=== PATIENT | female | born 1940 | race Caucasian/White ===

== ENCOUNTER → 2016-10-21 | Outpatient (CLI) | payer MEDICARE, BC ==
[~2016-10-21] MED LIST: ACCUPRIL40 MG PO; ACETAMINOPHEN325 MG PO; ACETAMINOPHEN650 M1 PO; AMITRIPTYLINE H25 MG PO; AXID150 M1 PO; AXID150 MG PO; CALCIUM 500 +1 EAC5 PO; DIOVAN160 MG PO; HCTZ PO; HYDROCHLOROTHIA25 MG PO; LORTAB 5-325 M1 EACH PO; METOPROLOL SUC100 MG PO; PHENERGAN25 M1 PO; PRAVASTATIN SOD20 MG PO; TUMS200 MG PO
--- NOTE | ~2016-10-21 | EKG ---
PATIENT: RENITA CLARKE UNIT #: [id number] Ventricular Rate: 75 BPM Atrial Rate: 75 BPM P-R Interval: 200 ms QRS Duration: 88 ms Q-T Interval: 378 ms QTC Calculation(Bezet): 422 ms P [place]: 15 degrees Calculated T [place]: 18 degrees Diagnosis Line: Normal sinus rhythm Diagnosis Line: Normal ECG Diagnosis Line: When compared with ECG of 07-MAY-2013 13:09, Diagnosis Line: No significant change was found Diagnosis Line: Confirmed by MESHA STEELE MD ([id number]) on Diagnosis Line: 10/21/2016 9:36:54 PM INTERPRETING MD: DEBI
[2016-10-21 12:03] LABS: HEMATOCRIT 40.2 % (35.0-45.0); HEMOGLOBIN 13.1 gm/dL (12.0-16.0); MEAN CELL VOLUME 89.8 FL (83-96); MEAN CORPUSCULAR HEMOGLOBIN 29.2 PG (28-34); MEAN CORPUSCULAR HGB CONC 32.5 g/dL (30-36); MEAN PLATELET VOLUME 7.3 FL (6.5-11.5); RED BLOOD COUNT 4.47 X10e (3.90-5.30); RED CELL DISTRIBUTION WIDTH 14.4 % (11.0-15.5)
[2016-10-21 12:48] LABS: ALBUMIN SERUM 3.5 g/dL (3.5-5.0); BILIRUBIN,TOTAL 0.9 mg/dL (0.2-2.0); BUN/CREATININE RATIO 11.42; CALCIUM SERUM 9.1 mg/dL (8.4-10.2); CREATININE SERUM 1.4 mg/dL (0.6-1.4); GLOM FILT RATE Estimated 36.9 mL/min (>60); POTASSIUM 3.8 mmol/L (3.5-5.1); PROTEIN TOTAL SERUM 7.1 g/dL (6.0-8.3)
== END | disposition home or self-care (01) ==
LOC: CAMB 11:37
PROVIDERS: Surgery
DX: Z01.818 Encounter for other preprocedural examination (principal); E07.89 Other specified disorders of thyroid
CPT/HCPCS: 36415; 80053; 85027; 93005

== ENCOUNTER 2016-10-27 05:41 | Observation (INO) | payer MEDICARE, BC ==
--- NOTE | ~2016-10-27 | CR71 ---
[facility] A Service of [facility] RADIOLOGY TEXT RESULTS PATIENT: RENITA CLARKE LOCATION: [place] [address]- : 44 UNIT #: [id number] AGE: [address]: Ziyad Don MD SEX: F ORDER DR: [id number] [facility] [address] [place], [place] [address] [id number] I MR#: [id number] Acc #: [id number] NAME: RENITA CLARKE. : 1940 SEX: F STUDY DATE/TIME: 10/27/2016 10:28 UNIT: [facility] ROOM: [facility] STUDY DESCRIPTION: CR Chest Single View Attending Physician: Ziyad Don M.D. Ordering Physician: Ziyad Don M.D. Primary Care Physician: Rajiv Ochoa M.D. MEDICAL IMAGING REPORT This report is preliminary unless electronic signature is present EXAM Portable chest 1-view, 10/27/2016 HISTORY Immediate status post thyroidectomy for goiter with intrathoracic extension. FINDINGS There is no infiltrate or effusion and there is no pneumothorax. Surgical clips in the low right neck/upper mediastinum are identified but otherwise no acute abnormality is seen. Dictated by... Josue Coburn M.D. THIS IS AN ELECTRONICALLY VERIFIED REPORT Josue Coburn M.D. at 10/28/2016 3:53 PM TE/eddie TD: 10/27/2016 12:31 JOB #: [id number] MEDICAL IMAGING REPORT Page 1 of 1 COPY
--- NOTE | ~2016-10-27 | OR ---
Unit #: [id number] #: [id number] Patient: RENITA CLARKE [id number] [address] [place], [place] [address] [id number] I MR#: [id number] NAME: RENITA CLARKE. ROOM: 476 Date of Procedure: 10/27/2016 Admission Date: 10/27/2016 Surgeon: Ziyad Don M.D. : 1940 Attending Physician: Ziyad Don M.D. Primary Care Physician: Rajiv Ochoa M.D. OPERATIVE REPORT PREOPERATIVE DIAGNOSIS Follicular neoplasm, right lobe of the thyroid. POSTOPERATIVE DIAGNOSIS Follicular neoplasm, right lobe of the thyroid. PROCEDURES PERFORMED Right thyroid lobectomy and isthmusectomy. CLEANING MACHINE OPERATOR Desire Sauceda, certified flex endoscope reprocessor. ANESTHESIA General endotracheal anesthesia with 0.5% Marcaine plain local anesthesia. FINDINGS The right recurrent laryngeal nerve was intact at the end of the procedure as well as the right inferior parathyroid. All dissection was kept on the capsule of the thyroid. SPECIMENS Sent to pathology. COMPLICATIONS None apparent. CONDITION The patient tolerated the procedure well. INDICATIONS FOR PROCEDURE The patient is a 76-year-old white female, who has a history of breast cancer and in the course of her evaluation with CT scan was found to have a 3 to 4 cm mass in the right lobe of the thyroid. The left lobe of her thyroid was normal. Our recommendation was to proceed with right thyroid lobectomy and isthmusectomy, possible total thyroidectomy. She got a second opinion from Dr. Claus Weaver of [facility], who gave the same opinion independently. She presents at this time for right thyroid lobectomy and isthmusectomy, possible total thyroidectomy. DESCRIPTION OF PROCEDURE Unit #: [id number] #: [id number] Patient: RENITA CLARKE After obtaining informed consent as well as receiving preoperative antibiotics and knee-high SCDs, the patient was brought to the operating room and after adequate general endotracheal anesthesia was obtained, had a roll placed under her shoulders and her neck gently hyperextended, but well supported. Her chin, neck, and chest were all prepped and draped in a sterile fashion. A curvilinear incision was made in a skin fold that had previously been marked. It was taken down through the skin with a knife into the subdermal tissues, subcutaneous tissues, and platysma. A superior flap was raised to the level of the thyroid notch and inferior flap was raised to the level of the sternal notch. The strap muscles were divided in the midline with electrocautery with good hemostasis. The strap muscles were dissected off the anterior surface of the right lobe of the thyroid. The large thyroid nodule was able to be mobilized anteromedially with blunt dissection. The inferior feeding vessels were taken with medium size hemoclips as well as 2-0 Vicryl ties. The middle thyroid vein and inferior thyroid artery were taken with micro-clips and medium-sized clips. The superior vessels were taken with a medium-sized clips and micro-clips as well as with bipolar forceps. The thyroid was meticulously mobilized anteromedially taking all feeding vessels with micro-clips as well as bipolar forceps. The right recurrent laryngeal nerve was meticulously avoided. It was visualized. The right superior laryngeal nerve was meticulously avoided. The right inferior parathyroid was visualized and was viable at the end of the procedure. The thyroid continued to be mobilized up anteromedially and was dissected off the anterior surface of the trachea. It was divided at the junction with the left lobe of the thyroid with electrocautery with good hemostasis and was sent to pathology after being oriented. The wound was copiously irrigated. All irrigation was evacuated. There was good hemostasis in all areas of dissection. There was good hemostasis even with multiple Valsalva breaths. At this point in time, the piece of Surgicel was placed into the area to help ensure hemostasis. The strap muscles were reapproximated with interrupted 3-0 Vicryl oekblm-at-prkjo sutures. The subcutaneous tissues were irrigated. Hemostasis was obtained with the Bovie. All areas were infiltrated with 0.5% Marcaine plain local anesthesia. The subcutaneous tissues and platysma were reapproximated with a running 3-0 Vicryl suture. The skin was closed with 4-0 Vicryl subcuticular stitch. Benzoin and Steri-Strips were applied over the wound in an occlusive manner. Needle counts, sponge counts, and instrument counts were all correct as reported by the scrub nurse x2. The patient went from the operating room to the recovery room in stable condition. Dictated by... Amanda Boyce/jacquelin TD: 10/28/2016 02:21 JOB #: [id number] CC: [facility] Unit #: [id number] #: [id number] Patient: RENITA CLARKE OPERATIVE REPORT Page 1 of 1 X Ziyad Don MD PROCEDURE OPERATIVE NOTE
[~2016-10-27 05:41] MED LIST changes: -ACETAMINOPHEN325 MG PO; -ACETAMINOPHEN650 M1 PO; -CALCIUM 500 +1 EAC5 PO; -LORTAB 5-325 M1 EACH PO; -PHENERGAN25 M1 PO
[2016-10-27] MEDS ORDERED: ACETAMINOPHEN325 MG PO (17:12)
[2016-10-27] MEDS ORDERED: ACETAMINOPHEN650 M1 PO (17:14)
[2016-10-27] MEDS ORDERED: CALCIUM 500 +1 EAC5 PO (17:20)
[2016-10-27] MEDS ORDERED: LORTAB 5-325 M1 EACH PO (17:23)
[2016-10-27] MEDS ORDERED: PHENERGAN25 M1 PO (17:24)
== END 2016-10-27 19:14 | disposition home or self-care (01) ==
LOC: CSUR 05:41 → CPACUOF 10:16 → C4C 11:58
PROVIDERS: Surgery
PROC: 0GBH0ZZ Excision of Right Thyroid Gland Lobe, Open Approach (ICD-10-PCS; principal; 2016-10-27 07:30)
DX: E04.1 Nontoxic single thyroid nodule (principal); I10 Essential (primary) hypertension; E78.00 Pure hypercholesterolemia, unspecified; Z79.899 Other long term (current) drug therapy; Z98.890 Other specified postprocedural states
CPT/HCPCS: 71010; 82310; 88307; G0378; J0330; J0690; J1100; J2250; J2405; J2710; J3010

== ENCOUNTER → 2017-02-01 | Outpatient (CLI) | payer MEDICARE, BC ==
[~2017-02-01] MED LIST changes: +ACETAMINOPHEN325 MG PO; +ACETAMINOPHEN650 M1 PO; +CALCIUM 500 +1 EAC5 PO; +LORTAB 5-325 M1 EACH PO; +PHENERGAN25 M1 PO
--- NOTE | ~2017-02-01 | MY29 ---
[facility] A Service of [facility] RADIOLOGY TEXT RESULTS PATIENT: RENITA CLARKE LOCATION: [facility] : 44 UNIT #: [id number] AGE: [address]: See Ochoa MD SEX: F ORDER DR: [id number] [facility] [address] [place], [place] [address] [id number] O MR#: [id number] Acc #: [id number] NAME: RENITA CLARKE : 1940 SEX: F STUDY DATE/TIME: 02/01/2017 11:42 UNIT: [facility] ROOM: STUDY DESCRIPTION: MY TYRONE SCREENING W/ VINNY BILAT Attending Physician: Rajiv Ochoa M.D. Ordering Physician: Rajiv Ochoa M.D. Primary Care Physician: Rajiv Ochoa M.D. MEDICAL IMAGING REPORT This report is preliminary unless electronic signature is present EXAM Digital screening mammogram 02/01/2017, [facility]. HISTORY 76 year old woman. Previous right lumpectomy with adjuvant radiation therapy, age 73. Personal and family history, mother age 84. Annual screening. COMPARISON Comparison mammograms date to 08/08/2006, with most recent diagnostic mammogram 01/27/2016. FINDINGS Digital imaging of each breast was completed utilizing screening protocol. Lumpectomy markers were placed on the right breast. Review includes FDA-approved CAD device. Breast parenchyma is fatty replaced bilaterally. Stellate scar at the right lumpectomy site is stable. There is no interval occurring breast mass. Loosely grouped calcifications are present centrally in the left breast. These are very mildly progressive, but warrant only annual monitoring at this time. There is no suspicious architectural disturbance. IMPRESSION Negative stable mammogram. Annual monitoring of the calcifications left breast appropriate. Stable post lumpectomy findings right breast. Annual screening recommended. Patients over the age of 40 are entered into a reminder system with target due date for the next mammogram. A result letter will be sent to the patient. BIRADS: 2 Benign findings. [facility] A Service of [facility] RADIOLOGY TEXT RESULTS PATIENT: RENITA CLARKE LOCATION: [facility] : 44 UNIT #: [id number] AGE: [address]: See Ochoa MD SEX: F ORDER DR: Dictated by... Félix Núñez M.D. THIS IS AN ELECTRONICALLY VERIFIED REPORT Félix Núñez M.D. at 02/01/2017 3:40 PM RICARDO/micah TD: 02/01/2017 15:17 JOB #: [id number] MEDICAL IMAGING REPORT Page 1 of 1 COPY
== END | disposition home or self-care (01) ==
LOC: CWCC 11:13
DX: Z12.31 Encounter for screening mammogram for malignant neoplasm of breast (principal); Z85.3 Personal history of malignant neoplasm of breast; Z80.3 Family history of malignant neoplasm of breast; R92.1 Mammographic calcification found on diagnostic imaging of breast; Z98.890 Other specified postprocedural states
CPT/HCPCS: G0202